=== PATIENT | male | born 1970 | race Caucasian/White ===

== ENCOUNTER → 2016-10-25 | Outpatient (CLI) | payer OTHER ==
[~2016-10-25] MED LIST: ACETAMINOPHEN325 M1 PO; BACTRIM DS TAB1 EACH PO; CENTRUM SILVER1 EAC2 PO; CERTAGEN SENIOR PO; CITROMA296 ML PO; COLACE100 MG PO; DEXAMETHASONE 22 M1 PO; DEXAMETHASONE 44 M1 PO; INVANZ 1GM/NS 101 GM IVPB; JUVEN PACKET1 EACH PO; KEPPRA 500 MG500 M1 PO; MOM PO; NAPROSYN500 MG PO; NOHOMEMEDICATIONS; NORCO 5-325 TA1 EACH PO; PERCOCET 7.5-31 EACH PO; VITAMINC500 PO; ZINC SULFATE220 MG PO
== END ==
LOC: MRI 08:50
DX: C71.9 Malignant neoplasm of brain, unspecified (principal)

== ENCOUNTER → 2017-04-26 | Outpatient (CLI) | payer OTHER | LOC: MRI 04-22 08:51 | DX: C71.9 Malignant neoplasm of brain, unspecified (principal) ==

== ENCOUNTER → 2017-11-25 | Outpatient (CLI) | payer OTHER | LOC: MRI 13:48 | DX: D49.6 Neoplasm of unspecified behavior of brain (principal); C71.9 Malignant neoplasm of brain, unspecified ==

== ENCOUNTER → 2018-12-25 | Outpatient (CLI) | payer OTHER | LOC: MRI 09:11 | DX: C71.9 Malignant neoplasm of brain, unspecified (principal) ==

== ENCOUNTER → 2019-07-06 | Outpatient (CLI) | payer OTHER | LOC: MRI 09:21 | DX: C71.9 Malignant neoplasm of brain, unspecified (principal); G93.89 Other specified disorders of brain ==

== ENCOUNTER → 2020-02-12 | Outpatient (CLI) | payer OTHER | LOC: MRI 01-07 11:44 | DX: C71.9 Malignant neoplasm of brain, unspecified (principal); G93.89 Other specified disorders of brain ==

== ENCOUNTER → 2020-08-14 | Outpatient (CLI) | payer OTHER | LOC: MRI 09:35 | PROVIDERS: ATTEND Radiology Radiation Oncology | DX: C71.9 Malignant neoplasm of brain, unspecified (principal); R90.82 White matter disease, unspecified ==

== ENCOUNTER → 2020-11-21 | Outpatient (CLI) | payer OTHER | LOC: MRI 10:00 | PROVIDERS: ATTEND Radiology Radiation Oncology | DX: C71.9 Malignant neoplasm of brain, unspecified (principal) ==

== ENCOUNTER → 2021-05-22 | Outpatient (CLI) | payer OTHER | LOC: MRI 09:08 → CAT 12:31 | PROVIDERS: ATTEND Radiology Radiation Oncology | DX: C71.3 Malignant neoplasm of parietal lobe (principal); G93.89 Other specified disorders of brain; J32.9 Chronic sinusitis, unspecified ==

== ENCOUNTER → 2021-11-25 | Outpatient (CLI) | payer OTHER | LOC: MRI 11:09 | PROVIDERS: ATTEND Radiology Radiation Oncology | DX: C71.9 Malignant neoplasm of brain, unspecified (principal) ==